=== PATIENT | female | born 1990 | race Caucasian/White ===

== ENCOUNTER 2024-10-25 12:34 | Outpatient (CLI) | payer OTHER, SELFPAY ==
--- NOTE | 2024-10-25 12:30 | RT.EKG_ITS ---
APPROVED REPORT Exam: Resting ECG Reason for Exam: chest discomfort Patient Location: O HR:93 bpm ECG Measurements Heart Rate 93 AXIS MN 129 P 75 QRSd 79 QRS 67 QT 348 T 48 QTc 433 Conclusion Sinus rhythm...normal P axis, V-rate 50- 99 Otherwise normal ECG
== END 2024-10-25 12:35 | disposition home or self-care (01) ==
LOC: DI.CM 12:35
PROVIDERS: PCP Family Medicine; Visit Provider Physician Assistant
DX: R07.89 Other chest pain (principal)
CPT/HCPCS: 93010

== ENCOUNTER 2024-10-25 13:09 | Emergency (ER) | payer OTHER, SELFPAY ==
--- NOTE | 2024-10-25 13:00 | RT.EKG_ITS ---
APPROVED REPORT Exam: Resting ECG Reason for Exam: tachy Patient Location: E HR:92 bpm ECG Measurements Heart Rate 92 AXIS DE 126 P 76 QRSd 83 QRS 70 QT 330 T 49 QTc 409 Conclusion Sinus rhythm, rate 92 No interval abnormalities No STEMI No priors available for comparison
[2024-10-25 13:14] VITALS: BP 125/85; PULSE 103; RESP 20; TEMP 36.9; O2SAT 99
--- NOTE | 2024-10-25 13:39 | ED.GENADUL_ITS ---
Discharge Plan Disposition Patient Disposition: Home Condition: Stable Discharge Details Clinical Impression: Syncope Primary Care Provider: Valeria Damon ED Provider: Kacie Huitron Home Meds and New Rx's Prescriptions: No Action No Known Home Meds Discharge Instructions Instructions: Syncope (Fainting) (DC) Additional Instructions: You were seen in the emergency department today for evaluation after syncopal episode. In our department you do full physical examination performed, had an EKG that was quite reassuring and showed no sign of arrhythmia nor the characteristic changes associated with ARVD. You had laboratory studies that did not show any sign of anemia, your electrolytes are largely normal with the exception of the slightly low magnesium that we discussed. You have elected to replete this through your diet, which is a very reasonable choice. 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 Please maintain good hydration as you recover from your gastrointestinal illness. Please follow-up with your primary care provider in the next few days to discuss this visit and any symptoms that change, worsen, or persist. Thank you for allowing us to be part of your care. HPI General Mode of arrival: ambulatory . Date/Time Provider Initiated Documentation: 10/25/24 13:13 . Limitations to Documentation: no limitations . Information obtained by: patient and old records reviewed . 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 The patient had recent exposure to a family member sick with norovirus, states that today she began to feel unwell, with some nausea, went to the bathroom thinking she was going to be sick and had a syncopal episode lasting several seconds. She reports that she did not sustain injury, fall, or head strike during this event. She has not had a syncopal episode in the past, states that her smart watch told her that her heart rate was 149 during this event. She has been able to maintain her hydration, has not had any vomiting, had a soft atypical stool but no liquid diarrhea. Has some generalized abdominal discomfort but no specific areas of pain or tenderness. The patient follows with [facility] in [place], she is due this year for her Holter monitor and echo. Exam: Gen: Awake and alert, in no apparent distress HEENT: Non-icteric sclera Neck: Supple Lungs: No apparent respiratory distress, normal respiratory effort. CV: Appears well perfused, heart with regular rate and rhythm at the time of this provider's examination, strong distal pulses Abdomen: Non-distended, soft, nontender to palpation without rigidity, rebound, guarding MSK: Moves 4 extremities without apparent limitation in ROM. No peripheral edema Skin: Visualized skin without rashes, cyanosis. Neuro: Normal Gait, no obvious focal deficits or facial asymmetry. Speaks in full, clear sentences. Psych: Appropriate for situation. MDM: This is a 34-year-old female patient presenting for evaluation of syncope. Differential includes but is not limited to arrhythmia, metabolic electrolyte derangement, kidney injury, dehydration, anemia. Considered vasovagal syndrome and orthostasis. No seizure history or reported postictal phase. No neurodeficits to suggest CVA or intracranial mass/mass effect. We obtained an EKG, which I reviewed, showing a normal sinus rhythm with no evidence of ischemia, interval abnormality such as long QT, or ectopy. I do not note any of the characteristic changes or morphologies associated with ARVD, no evidence for ventricular dysrhythmia. Will obtain laboratory studies to include CBC, CMP, magnesium, troponin, ED Course: I independently interpreted the laboratory studies, which show no significant leukocytosis, anemia, or thrombocytopenia. The chemistry panel is without evidence of electrolyte abnormality other than a mild hypomagnesemia, no kidney dysfunction, or liver injury. Troponin negative and TSH within normal limits. I did discuss magnesium repletion with the patient, who is preferring to avoid infusion and supplement with dietary sources. I feel this is reasonable given the mild degree of hypomagnesemia and her lack of prolongation of her QTc. The patient tolerated oral intake while in the emergency department, and was monitored on telemetry with no dysrhythmia. She had resolution of her mild tachycardia noted during triage. She will contact her outpatient head of marketing analytics to schedule urgent Holter and echo, and at this time, the patient has had a full medical evaluation and is safe for discharge to home. They are hemodynamically stable, ambulatory, and tolerating PO. They are understanding of the follow-up plan and return precautions. They left our facility without incident. Kacie Huitron MD Related Data Home Medications ?Medication ?Instructions ?Recorded ?Confirmed Unknown [No Known Home Meds] 01/28/22 10/25/24 Allergies Allergy/AdvReac Type Severity Reaction Status Date / Time Dogs Allergy Skin Rash Uncoded 10/25/24 13:11 Dust mites Allergy Skin Rash Uncoded 10/25/24 13:11 General Stated Complaint: Nausea/Vomit/Diar KIERA: 3 Course Vital Signs Vital signs: Vital Signs Temperature 36.9 C 10/25/24 13:14 Pulse 103 H 10/25/24 13:14 Respiratory Rate 20 10/25/24 13:14 Blood Pressure 125/85 10/25/24 13:14 Pulse Oximetry 99 10/25/24 13:14 Temperature 36.9 C 10/25/24 13:14 Temperature Source Oral 10/25/24 13:14 Pulse 103 H 10/25/24 13:14 Respiratory Rate 20 10/25/24 13:14 Blood Pressure 125/85 10/25/24 13:14 Blood Pressure Position Sitting 10/25/24 13:14 Pulse Oximetry 99 10/25/24 13:14 Oxygen Delivery Method Room Air 10/25/24 13:14 Oxygen Flow Rate 0 10/25/24 13:14 Pain Level 0 10/25/24 13:14 Medical Decision Making Quality:SDOH Health Related Social Needs: No Data to Display PFSH All Active Problems (Updated 10/25/24 @ 14:26 by Kacie Huitron MD) Syncope (Chronic) Abnormal auditory perception of right ear (Acute) Pressure sensation in right ear (Acute) Facial pressure (Acute) Nasal sinus congestion (Acute) TMJ (dislocation of temporomandibular joint) (Acute) Family History (Updated 01/28/22 @ 14:43 by Alesia RENE) Mother Diabetes Heart disease Maternal Grandfather Cancer Paternal Grandfather Brain cancer Social History (Updated 01/28/22 @ 14:44 by Alesia RENE) Smoking/Tobacco Use Status: Never Smoking risk assessment performed?: Yes Alcohol Intake: current Alcohol Intake frequency: a few times a month Drug use: Never Substance use type: does not use Pets and animals: No
[2024-10-25 13:46] LABS: Abs Immature Grans 0.04 10^3/uL (0.0-0.06); Absolute Basophil Count 0.04 10^3/uL (0.0-0.2); Absolute Eosinophil Count 0.02 10^3/uL (0.0-0.7); Absolute Lymphocyte Count 0.86 10^3/uL (1.2-3.4); Absolute Monocyte Count 0.41 10^3/uL (0.1-0.8); Absolute Neutrophil Count 6.59 10^3/uL (1.2-6.7); Basophils % 0.5 %; Eosinophils % 0.3 %; HCT 40.6 % (36.0-46.0); HGB 13.8 g/dL (11.2-15.7); Immature Grans % 0.5 %; Lymphocytes % 10.8 %; MCH 31.8 pg (27.0-33.0); MCV 94 fL (80-95); MPV 9.7 fL (8.0-11.0); Monocytes % 5.2 %; Neutrophils % 82.7 %; Platelet Count 231 10^3/uL (130-400); RBC 4.34 10^6/uL (3.93-5.22); RDW 11.8 % (11.7-14.6); RDW-SD 40.7 fL; WBC 7.96 10^3/uL (4.4-10.8)
[2024-10-25 14:13] LABS: ALT 25 U/L (14-59); AST 14 U/L (15-37); Albumin 3.8 g/dL (3.4-5.0); Alkaline Phosphatase 62 U/L (46-116); Anion Gap 8.2 mmol/L (3-11); BUN 10 mg/dL (7-18); Bilirubin, Total 0.74 mg/dL (0.2-1.0); CO2 25.8 mmol/L (21.0-32.0); CREATININE 0.8 mg/dL (0.55-1.02); Calcium 9.1 mg/dL (8.5-10.1); Chloride 105 mmol/L (98-107); Estimated GFR 100.33 (mL/min/1.73m2); Glucose 114 mg/dL (74-106); Magnesium 1.6 mg/dL (1.8-2.4); Potassium 3.6 mmol/L (3.5-5.1); Sodium 139 mmol/L (136-145); Total Protein 7.2 g/dL (6.4-8.2); Troponin I 8 ng/L (<or=51)
[2024-10-25 14:35] VITALS: BP 102/59; PULSE 80; RESP 16; O2SAT 100
== END 2024-10-25 14:40 | disposition home or self-care (01) ==
PROVIDERS: Emergency Provider Emergency Medicine; PCP Family Medicine
DX: R55 Syncope and collapse (principal); E83.42 Hypomagnesemia
CPT/HCPCS: 80053; 93005; 99284; 83735; 84443; 84484; 85025; 93010